=== PATIENT | male | born 1975 | race Caucasian/White ===

== ENCOUNTER → 2025-02-28 13:18 | Outpatient (REF) | payer BC, SELFPAY | LOC: RAD 13:18 | PROVIDERS: ATTENDING PHYSICIAN Physician Assistant; FAMILY PHYSICIAN Student in an Organized Health Care Education/Training Program | DX: M06.4 Inflammatory polyarthropathy (principal); M25.559 Pain in unspecified hip; M54.50 Low back pain, unspecified | CPT/HCPCS: 72170; 73130 ==

== ENCOUNTER → 2025-04-12 15:22 | Outpatient (REF) | payer BC, SELFPAY | LOC: MRI 3T 15:22 | PROVIDERS: ATTENDING PHYSICIAN Specialist | DX: R97.20 Elevated prostate specific antigen [PSA] (principal) | CPT/HCPCS: 72197; A9575 ==